=== PATIENT | male | born 1995 | race Caucasian/White ===

== ENCOUNTER 2019-06-02 17:22 | Emergency (ER) | payer OTHER ==
[~2019-06-02] VITALS: Ht 165.1 cm; Wt 97.5 kg
== END 2019-06-02 19:47 | disposition home or self-care (01) ==
LOC: ER 17:22
DX: R11.2 Nausea with vomiting, unspecified (principal); T75.1XXA Unspecified effects of drowning and nonfatal submersion, initial encounter; Y21 Drowning and submersion, undetermined intent; Y93.11 Activity, swimming; Y92.832 Beach as the place of occurrence of the external cause; Y99.8 Other external cause status